=== PATIENT | female | born 1995 | race Asian ===

== ENCOUNTER 2016-08-17 08:29 | Inpatient (IN) | payer OTHER ==
[~2016-08-17] VITALS: Ht 157.5 cm; Wt 60.0 kg
[~2016-08-17 08:29] MED LIST: ACET50TA PO; IBUP80TA PO; VITAPRTA PO
[2016-08-17 08:36] VITALS: BP 116/86
[2016-08-17 08:39] VITALS: BP 115/70
[2016-08-17 08:53] VITALS: BP 106/65
[2016-08-17] MEDS: PRENATAL VITAMIN TAB PO SCH (09:00)
--- NOTE | 2016-08-17 09:02 | HPEPDOC ---
Obstetrical History & Physical General Date of Admission Aug 17, 2016 at 08:29 History of Present Illness 20 y/o presented to the clinic at 40+2 with painful reg ctx's the last hour. no LOF/VB. Pos FM. Taken emergentlyto L&D where she deivered within 10 min of presentation, see delivery summary. Healthy baby boy. Chief Complaint: Contractions, term Information Provided By: Patient Care Care: Good Care Number of Visits: 12 Dating Final EDC: Aug 15, 2016 Final EDC by: LMP Antepartum Course Diagnos(e)s stable subchorionic hematoma closely spaced pregnancies Past Medical History Past Obstetrical History : Past Obstetrical History: Multigravida (41 wks DEC15 7 lb 4 oz) Type of Delivery: Spontaneous Vaginal Del. Sex of Infant: Female Complications: No MITER SAWYER History: No pertinent history Past Medical History Medical History denies Surgical History: Denies/None Family History Significant Family History: No pertinent family hx Family History denies Social History Marital Status: Family situation: Spouse/partner home Psychosocial History: No pertinent psych hx * Smoker: non-smoker Alcohol: denies Drugs: denies Abuse Violence Screening Have you been hit/kicked/slapp: No Have you been sexually assault: No Imunizations Tdap status: current Influenza Status: current Allergies Coded Allergies: No Known Allergies (Unverified , 06/14/15) Medications Scheduled Multivit/Min/Pren/Fol Ac/Iron ( Rx) 1 Tab Tab 1 TAB PO DAILY Scheduled PRN Acetaminophen (Mapap) 500 Mg Tab 1,000 MG PO Q6HP PRN PRN PAIN Ibuprofen (Ibuprofen) 800 Mg Tab 800 MG PO Q8HP PRN PRN PAIN Physical Examination Physical Examination Labial separation as soon as pants removed. BOW intact and no cx present, +4 station. see del summary. Laboratory Data 24[facility]S Laboratory Tests 2 08/17/16 08:45: Serology Scanned Report Hepatitis B Testing Pertinent Laboratoy Data Blood Type: O+ RBC Antibody Screen: Negative HIV: Negative Hepatitis B: Negative Hepatitis C: Unknown Rapid Plasma Reagin: Nonreactive Rubella: Immune Varicella: Immune Chlamydia/Gonorrhea: Negative Group B Streptococcus: Negative Quad Screen Test: Declined Cystic Fibrosis: Negative Glucose Tolerance Test: 117 Anatomy Ultrasound Ultrasound Date: Apr 27, 2016 Placenta Location: Anterior Normal Anatomy: Yes (subchorionin hematoma, gone on subsequesnt scan) Placenta Previa: No (resolved previa that was seen at 14 wk scan) Vaginal Examination Dilation: 10 cm Effacement: 80+% Station: +3 Cervical Consistency: Soft Cervical Position: Anterior Presentation: Cephalic presentation Position: Vertex (occiput) Assessment Decelerations: Other (Fist FHR is 90's) Tocometer Contractions: Yes Frequency: regular Duration: greater than 60 seconds Strength: palpated as strong Assessment/Plan Assessment Active labor, Rh pos GBS neg, delivered, see delivery note Plan Admit and orient. Snow Remover and consent See delivery note. CBC and RPR after stable/recovered. SESSIONS,JOSE R Cook MD Aug 17, 2016 09:02 Snow Remover and consent See delivery note. CBC and RPR after stable/recovered. JOSE R TEJADA MD Aug 17, 2016 09:02
[2016-08-17 09:07] VITALS: BP 106/51
--- NOTE | 2016-08-17 09:09 | DNPDOC ---
Delivery Note Delivery Note DATE OF DELIVERY: Aug 17, 2016 at 08:29 PREDELIVERY DIAGNOSIS: 40+2/7 weeks' gestation and labor. POST DELIVERY DIAGNOSIS: Delivered. PROCEDURE: Spontaneous vaginal deliver STUDY SPECIALIST: ANESTHESIA: none ESTIMATED BLOOD LOSS: 400mL. FINDINGS: 7 pound 5 ounce male infant, 3308 gm Score 8/9 DELIVERY SUMMARY: As soon as removed pants,labial separation noted and BOW noted to be intact. No cx on cx check. Got the tray ready and dropped the foor of the bed, once team assembled (<1 min) AROM with neel clamp, clr fluid. One push and vtx del'd, no delay of the L ant/R post shoulders. Healthy with good tone and cry to mother's abdomen. Cord C/C by FOB. No lacs. Placenta intact, 10 U IM pitocin given. VB brisk over next 1-2 minutes, HECTOR/ Cx swept free of a large clot, also gave methergine 0.2 mg IM and this slowed things tremendously. Stable when I left the room. No lap counts, never opened. Sessions MD TEJADA,JOSE R Cook MD Aug 17, 2016 09:09
[2016-08-17 09:15] LABS: MEAN CORPUSCULAR HEMOGLOBIN 30.5 pg (27.0-33.0); MEAN CORPUSCULAR HGB CONC 34.3 g/dl (32.0-36.5); MEAN CORPUSCULAR VOLUME 88.9 fl (80.0-96.0); RED CELL DISTRIBUTION WIDTH 13.1 % (11.5-14.5); WHITE BLOOD COUNT 16.2 K/mm3 (4.0-10.0)
[2016-08-17] MEDS ORDERED: METOCLOPRAMIDE INJ 10MG/2ML VIAL (J2765) IV PRN (10:00)
[2016-08-17] MEDS ORDERED: MEASLES,MUMPS,RUBELLA VACCINE INJ (MMR-II) (90707) SC SCH (10:00)
[2016-08-17] MEDS ORDERED: METHYLERGONOVINE MALEATE 0.2 MG/ML VIAL (J2210) IM ONE (10:00)
[2016-08-17] MEDS ORDERED: IBUPROFEN 800 MG TAB PO PRN (10:00)
[2016-08-17] MEDS ORDERED: DIBUCAINE 1% OINTMENT 30GM TOP PRN (10:00)
[2016-08-17] MEDS ORDERED: RHOGAM 300 MCG (1500 IU) INJ (J2790) IM SCH (10:00)
[2016-08-17] MEDS ORDERED: ACETAMINOPHEN TAB 650MG DOSE (2X325MG) PO PRN (10:00)
[2016-08-17] MEDS ORDERED: OXYTOCIN INJ 10 UNITS/ML VIAL (J2590) IM ONE (10:45)
[2016-08-17 11:30] VITALS: BP 102/68
[2016-08-17 17:57] VITALS: BP 111/56
[2016-08-17] MEDS: DOCUSATE SODIUM 100 MG CAP PO SCH (21:22)
[2016-08-18 06:07] VITALS: BP 93/53
--- NOTE | 2016-08-18 06:55 | DS.PDOC ---
Discharge Summary General Date of Admission Aug 17, 2016 at 08:29 Date of Discharge [id number] Discharge Summary COMPLICATIONS/CHIEF COMPLAINT: Active labor at term ADMISSION DIAGNOSES: 1. Active labor DISCHARGE DIAGNOSES: 1. HOSPITAL COURSE: Patient was admitted in labor and had an uncomplicated natural delivery shortly after arrival on Labor and Delivery. She had an uncomplicated course thereafter. DISCHARGE MEDICATIONS: Motrin, Lanolin, Tylenol, Colace, Nor QD for control PHYSICAL EXAMINATION ON DISCHARGE: see prog note from this AM VITAL SIGNS: Please see below. DISCHARGE CONDITION: stable DISPOSITION: to home ACTIVITY: Nothing in the vagina for 6 weeks. Regular diet. No bathing for several weeks, shower only. DISCHARGE PLAN AND INSTRUCTIONS: follow up at 6 week visit Sessions Vital Signs/I&Os Vital Signs Date Time Temp Pulse Resp B/P Pulse Ox O2 Delivery O2 Flow Rate FiO2 08/18/16 06:07 97.2 86 20 93/53 I&O- Last 24 Hours up to 6 AM 08/18/16 06:00 Output Total 400 ml Balance -400 ml Laboratory Data Labs 24H Laboratory Tests 2 08/17/16 08:45: Serology Scanned Report Hepatitis B Testing 08/17/16 09:04: CBC/BMP Laboratory Tests 08/17/16 09:04 Red Blood Count 4.34, Mean Corpuscular Volume 88.9, Mean Corpuscular Hemoglobin 30.5, Mean Corpuscular Hemoglobin Concent 34.3, Red Cell Distribution Width 13.1 Medications Scheduled Multivit/Min/Pren/Fol Ac/Iron ( Rx) 1 Tab Tab 1 TAB PO DAILY Allergies Coded Allergies: No Known Allergies (Unverified , 06/14/15) SESSIONS,JOSE R Cook MD Aug 18, 2016 06:55
--- NOTE | 2016-08-18 06:57 | IPNPDOC ---
Text Note Date of Service The patient was seen on 08/18/16. NOTE prog note on 16FEB at 0831 States feeling well, no complaints. Bonding, nursing well, VB slowing, no signif pain, eating, ambulatory. VSS Ut at U-2, firm LE no CCE a/p: Doing well, d/c home. Sessions Bakari CRUZ, I+O VSBakari I+O Laboratory Tests 08/17/16 09:04 Red Blood Count 4.34, Mean Corpuscular Volume 88.9, Mean Corpuscular Hemoglobin 30.5, Mean Corpuscular Hemoglobin Concent 34.3, Red Cell Distribution Width 13.1 Vital Signs Date Time Temp Pulse Resp B/P Pulse Ox O2 Delivery O2 Flow Rate FiO2 08/18/16 06:07 97.2 86 20 93/53 I&O- Last 24 Hours up to 6 AM 08/18/16 06:00 Output Total 400 ml Balance -400 ml SESSIONS,JOSE R Cook MD Aug 18, 2016 06:57
[2016-08-18] MEDS: DOCUSATE SODIUM 100 MG CAP PO SCH (08:31)
[2016-08-18] MEDS: PRENATAL VITAMIN TAB PO SCH (08:32)
--- NOTE | 2016-08-21 07:23 | IPN ---
DATE: 08/17/2016 Patient requested circumcision of her male . After discussing the risks and benefits of circumcision, the penile block, the aftercare, and expressed understanding of the risks and benefits, signed and witnessed consent form. We await the medical clearance by the ui programmer.
== END 2016-08-18 15:12 | disposition home or self-care (01) | DRG 775 ==
LOC: M LDI 08:29 → M OBS 10:08
PROVIDERS: ADMIT Obstetrics & Gynecology; ATTEND Obstetrics & Gynecology
PROC: 10E0XZZ Delivery of Products of Conception, External Approach (ICD-10-PCS; principal; 2016-08-17)
PROC: 10907ZC Drainage of Amniotic Fluid, Therapeutic from Products of Conception, Via Natural or Artificial Opening (ICD-10-PCS; 2016-08-17)
DX: O62.3 Precipitate labor (principal); Z37.0 Single live birth; Z3A.40 40 weeks gestation of pregnancy; O48.0 Post-term pregnancy